=== PATIENT | male | born 1930 | race Hispanic/Latino ===

== ENCOUNTER 2017-04-27 13:24 | Inpatient (IN) | payer MEDICARE, BC ==
[2017-04-27 13:37] VITALS: BMI 19.5
--- NOTE | 2017-04-27 13:58 | ED PDOC ---
Arrival/HPI - General Chief Complaint: Trauma Time Seen by Provider: 04/27/17 13:29 Historian: Patient - History of Present Illness Narrative History of Present Illness (Text): 04/27/17 13:57 An 86 year old male, whose past medical history includes hyperlipidemia, hypertension and Parkinsons, was brought in to the emergency department by EMS complaining of dizziness and lightheadedness. Patient reports he lives home alone and uses a walker. Reports he felt dizzy and lightheaded, as if he was about to faint, but didn't faint. Patient lowered himself to the ground. Denies any trauma. Meals on wheels came by, but patient couldn't get to the door and saw patient and called EMS. Patient reports intermittent diarrhea but denies any chest pain, palpitations, nausea, vomiting or any other complaints at this time. PMD: Dr. Su Symptom Onset: Sudden Symptom Course: Unchanged Activities at Onset: Rest Context: Home Past Medical History - Provider Review Nursing Documentation Reviewed: Yes - Infectious Disease Hx of Infectious Diseases: None - Tetanus Immunization Tetanus Immunization: Unknown - Cardiac Hx Cardiac Disorders: Yes Hx Hypertension: Yes - Pulmonary Hx Respiratory Disorders: Yes (PLEURISY) Hx Pneumonia: Yes - Neurological Hx Neurological Disorder: Yes HX Cerebrovascular Accident: Yes - HEENT Hx HEENT Disorder: Yes (WEARS RX GLASSES) - Renal Hx Renal Disorder: No - Endocrine/Metabolic Hx Endocrine Disorders: No - Hematological/Oncological Hx Blood Disorders: No - Integumentary Hx Dermatological Disorder: No - Musculoskeletal/Rheumatological Hx Musculoskeletal Disorders: Yes Hx Falls: Yes - Gastrointestinal Hx Gastrointestinal Disorders: Yes HX Swallowing Problems: Yes - Genitourinary/Gynecological Hx Genitourinary Disorders: No - Psychiatric Hx Psychophysiologic Disorder: No Hx Substance Use: No - Surgical History Hx Orthopedic Surgery: Yes - Anesthesia Hx Anesthesia: No Hx Anesthesia Reactions: No Hx Malignant Hyperthermia: No - Suicidal Assessment Feels Threatened In Home Enviroment: No Family/Social History - Physician Review Nursing Documentation Reviewed: Yes Family/Social History: No Known Family HX Smoking Status: Former Smoker Hx Alcohol Use: Yes (USED TO DRINK RED WINE DAILY) Hx Substance Use: No Hx Substance Use Treatment: No Allergies/Home Meds Allergies/Adverse Reactions: Allergies No Known Allergies Allergy (Verified 04/27/17 13:44) Home Medications: Home Meds Medication Instructions Recorded Confirmed Tamsulosin Hydrochloride 0.4 mg PO HS 01/13/12 04/27/17 Aspirin [Aspir 81] 81 mg PO DAILY 01/25/12 04/27/17 Clopidogrel [Plavix] 75 mg PO DAILY 04/17/14 04/27/17 Calcitriol [Rocaltrol] 0.5 mcg PO DAILY 07/18/15 04/27/17 Carbidopa/Levodopa [Sinemet Cr 1 ter PO DAILY 07/18/15 04/27/17 25-100 Tablet] Simvastatin [Zocor] 20 mg PO DAILY 07/18/15 04/27/17 Tamsulosin [Flomax] 0.4 mg PO DAILY 07/18/15 04/27/17 traMADol [Ultram] 50 mg PO DAILY 07/18/15 04/27/17 Review of Systems - Physician Review All systems were reviewed & negative as marked: Yes - Review of Systems Constitutional: Other (lightheadedness) Cardiovascular: absent: Chest Pain, Palpitations Gastrointestinal: absent: Nausea, Vomiting Neurological: Dizziness Physical Exam Vital Signs Reviewed: Yes Vital Signs Temp Pulse Resp BP Pulse Ox 04/27/17 14:00 99.1 F 04/27/17 13:40 98.3 F 69 26 H 101/71 100 Temperature: Afebrile Blood Pressure: Normal Pulse: Regular Respiratory Rate: Normal Appearance: Positive for: Well-Appearing, Non-Toxic, Comfortable Pain Distress: None Mental Status: Positive for: Alert and Oriented X 3 - Systems Exam Head: Present: Atraumatic, Normocephalic Pupils: Present: PERRL Extroacular Muscles: Present: EOMI Conjunctiva: Present: Normal Mouth: Present: Moist Mucous Membranes Neck: Present: Normal Range of Motion Respiratory/Chest: Present: Clear to Auscultation, Good Air Exchange. No: Respiratory Distress, Accessory Muscle Use Cardiovascular: Present: Regular Rate and Rhythm, Normal S1, S2. No: Murmurs Abdomen: Present: Normal Bowel Sounds. No: Tenderness, Distention, Peritoneal Signs Back: Present: Normal Inspection Upper Extremity: Present: Normal Inspection. No: Cyanosis, Edema Lower Extremity: Present: Other (left lower extremity 2+ edema; right lower extremity no edema; cellulitis left lower leg) Neurological: Present: GCS=15, CN II-XII Intact, Speech Normal. No: Motor Func Grossly Intact (old left sided weakness) Skin: Present: Warm, Dry, Normal Color. No: Rashes Psychiatric: Present: Alert, Oriented x 3, Normal Insight, Normal Concentration Medical Decision Making ED Course and Treatment: 04/27/17 13:55 Impression: An 86 year old male with dizziness and lightheadedness. Plan: -- EKG -- chest xray -- US lower extremity -- labs -- Urinalysis -- Rocephin -- Reassess and disposition Prior Visits: Notes and results from previous visits were reviewed. Patient was last seen in the emergency department on 03/08/16 for evaluation of dizziness, lightheadedness and weakness. Progress Notes: 04/27/17 14:47 EKG is pacing rate approximately 70. - Lab Interpretations Lab Results: 04/27/17 14:20 04/27/17 14:20 Lab Results 04/27/17 15:15: Urine Color Yellow, Urine Appearance Slight-cloudy, Urine pH 6.0 , Ur Specific [place] 1.020, Urine Protein Trace H, Urine Glucose (UA) Negative , Urine Ketones 15 H, Urine Blood Moderate H, Urine Nitrate Negative, Urine Bilirubin Negative, Urine Urobilinogen 0.2, Ur Leukocyte Esterase Negative, Urine RBC 15 - 20, Urine WBC 2 - 5, Ur Epithelial Cells 3 - 4, Amorphous Sediment Small 04/27/17 14:20: Sodium 137, Chloride 101, Potassium 4.1, Carbon Dioxide 24, Anion Gap 16, BUN 30 H, Creatinine 0.8, Est GFR ( Amer) > 60, Est GFR ( Non-Af Amer) > 60, Random Glucose 99, Calcium 9.0, Total Bilirubin 1.0, AST 55, ALT 56, Alkaline Phosphatase 123, Lactate Dehydrogenase 809 H, Total Creatine Kinase 518 H, CK-MB (CK-2) 11.3 H, CK-MB (CK-2) % 2.2 L, Troponin I 0.02, Total Protein 6.9, Albumin 3.7, Globulin 3.3, Albumin/Globulin Ratio 1.1 04/27/17 14:20: pO2 39, VBG pH 7.39, VBG pCO2 45.0, VBG HCO3 27.2, VBG Total CO2 28.6 H, VBG O2 Sat (Calc) 74.8 H, VBG Base Excess 1.7, VBG Potassium 4.0, Sodium 139.0, Chloride 103.0, Glucose 100, Lactate 3.1 H, FiO2 21.0, Venous Blood Potassium 4.0 04/27/17 14:20: WBC 11.7 H D, RBC 3.93, Hgb 12.7 L, Hct 38.0 L, MCV 96.7, MCH 32.3, MCHC 33.4, RDW 13.0, Plt Count 210, MPV 11.4 H, Gran % 83.6 H, Lymph % ( Auto) 7.4 L, [place] % (Auto) 8.8 H, Eos % (Auto) 0.1 L, Baso % (Auto) 0.1, Gran # 9.78 H, Lymph # 0.9 L, [place] # 1.0 H, Eos # 0.0, Baso # 0.01 04/27/17 14:20: PT 12.5, INR 1.14 H, APTT 27.3 I have reviewed the lab results: Yes - RAD Interpretation Radiology Orders: 04/27/17 13:50 DUPLEX LOWER EXTRM VEIN LEFT [US] Stat 04/27/17 13:51 CHEST ONE VIEW [RAD] Stat Chest 1 view shows no infiltrate effusion or cardiomegaly. Left lower extremity venous Doppler is read by the radiologist as negative for DVT. [employer] Inspector: Radiologist - EKG Interpretation Interpreted by ED Physician: Yes Type: 12 lead EKG - Medication Orders Current Medication Orders: Sodium Chloride (Sodium Chloride 0.9%) 2,500 mls @ 500 mls/hr IV ONCE ONE Stop: 04/27/17 19:44 Discontinued Medications Ceftriaxone Sodium (Rocephin 1 Gram Ivpb (D5w)) 1 gm in 100 mls @ 200 mls/hr IVPB STAT ONE PRN Reason: Protocol Stop: 04/27/17 14:29 Last Admin: 04/27/17 15:25 Dose: 200 mls/hr eMAR Start Stop Document 04/27/17 15:25 CNR (Rec: 04/27/17 15:27 [place]NR [facility] [id number] Intravenous Solution Start Date 04/27/17 Start Time 15:27 Sodium Chloride 1,000 ml/ IV (SUPPLIES) 1,000 mls @ 3,401.94 mls/hr IV ONCE ONE PRN Reason: 60 ML/KG/HR Stop: 04/27/17 15:27 Last Admin: 04/27/17 15:56 Dose: 3,401.94 mls/hr eMAR Start Stop Document 04/27/17 15:56 CNR (Rec: 04/27/17 15:57 CNR [facility] [id number] Intravenous Solution Start Date 04/27/17 Start Time 15:26 - Scribe Statement The provider has reviewed the documentation as recorded by the Toshia Franco Provider Scribe Attestation: All medical record entries made by the Scribe were at my direction and personally dictated by me. I have reviewed the chart and agree that the record accurately reflects my personal performance of the history, physical exam, medical decision making, and the department course for this patient. I have also personally directed, reviewed, and agree with the discharge instructions and disposition. Disposition/Present on Arrival - Present on Arrival Any Indicators Present on Arrival: No History of DVT/PE: No History of Uncontrolled Diabetes: No Urinary Catheter: No History of Decub. Ulcer: No History Surgical Site Infection Following: None - Disposition Have Diagnosis and Disposition been Completed?: Yes Diagnosis: Dehydration, Rhabdomyolysis, Fall, Anemia, Sepsis, Cellulitis, Edema, Weakness , Hematuria Disposition: HOSPITALIZED Disposition Time: 16:16 Patient Plan: Admission, Telemetry Patient Problems: Current Active Problems Problem Status Onset Anemia Acute Cellulitis Acute Dehydration Acute Edema Acute Fall Acute Rhabdomyolysis Acute Sepsis Acute Weakness Acute Condition: SERIOUS Discharge Instructions (ExitCare): Cellulitis (ED), Sepsis (ED), Weakness (ED) Referrals: Elina Myers MD [Primary Care Provider] - Follow up with primary Forms: [employer] (Chinese)
[2017-04-27] MEDS ORDERED: cefTRIAXone 1 gm 1 GM/100 ML BAG IVPB ONE (14:00)
[2017-04-27 14:41] LABS: VENOUS BLOOD GAS BASE EXCESS 1.7 mmol/L (0.0-2.0); VENOUS BLOOD PH 7.39 (7.32-7.43)
[2017-04-27] MEDS ORDERED: Sodium Chloride 0.9% 2,500 ML IV ONE (14:45)
[2017-04-27 14:46] LABS: BASO # 0.01 K/mm3 (0.0-2.0); BASO % 0.1 % (0.0-3.0); EOS % 0.1 % (1.5-5.0); GRAN # 9.78 (1.4-6.5); GRAN % 83.6 % (50.0-68.0); LYMPH # 0.9 (1.2-3.4); LYMPH % 7.4 % (22.0-35.0); MEAN CELL VOLUME 96.7 fl (80.0-105.0); MEAN CORPUSCULAR HEMOGLOBIN 32.3 pg (25.0-35.0); MEAN CORPUSCULAR HGB CONC 33.4 g/dl (31.0-37.0); MEAN PLATELET VOLUME 11.4 fl (7.0-11.0); MONO % 8.8 % (1.0-6.0); WHITE BLOOD COUNT 11.7 10^3/ul (4.5-11.0)
[2017-04-27 14:53] LABS: ALB/GLOB RATIO 1.1 (1.1-1.8); ALKALINE PHOSPHATASE 123 U/L (38-126); ALT/SGPT 56 U/L (7-56); AST/SGOT 55 U/L (17-59); BLOOD UREA NITROGEN 30 mg/dL (7-21); CARBON DIOXIDE 24 mmol/L (21-33); CHLORIDE 101 mmol/L (98-107); GFR AFRICAN-AMERICAN > 60; GLUCOSE,RANDOM 99 mg/dL (70-110); POTASSIUM 4.1 mmol/L (3.6-5.0); SODIUM 137 mmol/L (132-148); TOTAL PROTEIN 6.9 g/dL (5.8-8.3)
[2017-04-27 15:03] LABS: INR 1.14 (0.93-1.08); PARTIAL THROMBOPLASTIN TIME 27.3 Seconds (25.1-36.5); TROPONIN I 0.02 ng/mL
--- NOTE | 2017-04-27 15:29 | RAD ---
PROCEDURE: CHEST RADIOGRAPH, 1 VIEW HISTORY: weakness COMPARISON: None available. FINDINGS: LUNGS: Clear. PLEURA: No pneumothorax or pleural fluid seen. CARDIOVASCULAR: Normal. OSSEOUS STRUCTURES: No significant abnormalities. VISUALIZED UPPER ABDOMEN: Normal. OTHER FINDINGS: Single lead pacemaker IMPRESSION: No active disease.
[2017-04-27 16:05] LABS: URINE BILIRUBIN NEGATIVE (NEGATIVE); URINE BLOOD MODERATE (NEGATIVE); URINE GLUCOSE (UA) NEGATIVE (NEGATIVE); URINE KETONE 15 mg/dL (NEGATIVE); URINE LEUKOCYTE ESTERASE NEGATIVE Leu/uL (NEGATIVE); URINE PROTEIN TRACE mg/dL (<30 mg/dL); URINE UROBILINOGEN 0.2 E.U./dL (<1 E.U./dL)
[2017-04-27 16:07] LABS: URINE APPEARANCE SLIGHT-CLOUDY (CLEAR); URINE COLOR YELLOW (YELLOW)
[2017-04-27 16:14] LABS: URINE AMORPHOUS SEDIMENT SMALL; URINE RBC 15 - 20 /hpf (0-2)
[2017-04-27 18:32] LABS: VENOUS BLOOD GAS BASE EXCESS 2.9 mmol/L (0.0-2.0); VENOUS BLOOD PH 7.42 (7.32-7.43)
--- NOTE | 2017-04-27 18:50 | US ---
PROCEDURE: Left lower extremity venous US HISTORY: Leg pain and swelling. Evaluate for DVT. PHYSICIAN(S): Dean Honeycutt MD. TECHNIQUE: Duplex sonography and color-flow Doppler with graded compression were used to evaluate the deep venous system of the left lower extremity. FINDINGS: The visualized deep venous system of the left lower extremity is sonographically normal and compressible. Normal wave forms and augmentation are seen. There is no sonographic evidence for deep venous thrombosis in the visualized segments of the left lower extremity. IMPRESSION: 1. No sonographic evidence for deep venous thrombosis in the visualized segments of the left lower extremity.
[2017-04-27] MEDS ORDERED: Vancomycin 1gm in NS 250ml 1 GM/250 ML BAG IVPB STA (19:31)
--- NOTE | 2017-04-27 23:51 | CARD ---
APPROVED REPORT EKG Measurement Heart [id number] UT 102P21 [id number] <Conclusion> Demand pacemaker, interpretation is based on intrinsic rhythm Sinus rhythm Prolonged QT Abnormal ECG
--- NOTE | 2017-04-28 06:36 | HP ---
The patient is in [facility] in [place]. HISTORY OF PRESENT ILLNESS: The patient is seen in the emergency room. He is an 86-year-old white male. The patient was brought in by the EMS, because there was emergency call and the patient was found on the floor of his own apartment while at home. The patient was conscious and was able to answer questions, but he said he was very weak and dizzy, he fell down and the EMS brought him into the ER. He did not have any emergency cardiac pulmonary situation, but presented with severe infection of both legs including the skin cellulitis of both multiple abrasions. HISTORY OF PRESENT ILLNESS: The patient has past history of falls in the past and the patient has significant past history. He had been treated for hypertension, cerebrovascular disease, stroke, Parkinson's disease. The patient atherosclerotic heart disease with sick sinus syndrome. The patient has a pacemaker placed. The patient also had history of benign prostatic hyperplasia with incontinence of urine. The patient has evidence of gastritis reflux and the patient also has symptoms of hypertension associated with high blood pressure. The patient is intelligent and able to answer all questions. PHYSICAL EXAMINATION: GENERAL: The patient is lying in the emergency room. The patient is evaluated and seen and examined. HEENT: The patient's head is normocephalic. The head does not show any evidence of any injuries. NECK: The thyroid is not enlarged. The JVP is flat. Carotid pulses are present bilaterally. LUNGS: Trachea is central. Breath sounds are vesicular. No adventitious sounds. HEART: Normal sinus rhythm, S1 and S2 present. The patient has cardiac pacemaker, which is on demand. ABDOMEN: Soft. Liver and spleen not palpable. There is some distention. The patient has incontinence of urine. He does not have had [place] catheter in the recent past. CENTRAL NERVOUS SYSTEM: He has weakness previous stroke and the patient has had a hemorrhage in the basal ganglia also in the past. 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 The patient's hygiene is reasonable and he does have evidence of incontinence renal issue. MEDICATIONS: His list of medications consist of aspirin. The patient is on Plavix 75 mg daily, Lipitor 10 mg daily, Flomax 0.4 mg daily, vitamin D 0.25 mcg daily, Sinemet 25/100 one three times a day. The patient is on metoprolol 25 mg once daily, 2 g of sodium, heart-healthy diet. LABORATORY DATA: Done in the hospital emergency room, the white count is 7,700, his hemoglobin is 12.7, differential shows a shift to the left with a 83.6% of neutrophils and the patient also has normal eosinophil count. His chemistry, the patient's sodium is 137, potassium is 4.1, BUN 30, creatinine 0.8. The patient's LDH is 809, creatine kinase is 518. CPK MB fraction 11.3 consistent with some mild damage most likely related to skeletal muscle. The patient's troponin is within normal limits. The patient has x-rays done in the hospital, the chest x-ray was clear. The patient had a electrocardiogram, which shows evidence of ischemic heart disease. Ultrasound of the legs did not reveal any deep vein thrombosis. the patient's medication at this time; the patient will be placed on antibiotic. We will provide local treatment for both legs and we provide the patient with all other medical treatments he requires. His overall prognosis is guarded. Condition is clinically stable at this time, even though it is acute. We will continue with management plan and we will follow up with care for the patient, probably needs long-term subacute care for continued antibiotic treatment after the patient is stable. We will discuss that with the patient and make arrangements. Cong Myers MD
[2017-04-28 06:37] LABS: IRON 55 ug/dL (45-180)
[2017-04-28 06:48] LABS: BASO # 0.03 K/mm3 (0.0-2.0); BASO % 0.3 % (0.0-3.0); BLOOD UREA NITROGEN 29 mg/dL (7-21); CALCIUM 8.2 mg/dL (8.4-10.5); CARBON DIOXIDE 26 mmol/L (21-33); CHLORIDE 111 mmol/L (98-107); EOS # 0.1 (0.0-0.7); GFR AFRICAN-AMERICAN > 60; GLUCOSE,RANDOM 100 mg/dL (70-110); GRAN # 6.4 (1.4-6.5); GRAN % 71.9 % (50.0-68.0); HEMATOCRIT 32.9 % (42.0-52.0); LYMPH % 11.6 % (22.0-35.0); MEAN CELL VOLUME 96.5 fl (80.0-105.0); MEAN CORPUSCULAR HEMOGLOBIN 31.4 pg (25.0-35.0); MEAN CORPUSCULAR HGB CONC 32.5 g/dl (31.0-37.0); MEAN PLATELET VOLUME 11.2 fl (7.0-11.0); MONO # 1.4 (0.1-0.6); MONO % 15.2 % (1.0-6.0); POTASSIUM 3.4 mmol/L (3.6-5.0); RED CELL DISTRIBUTION WIDTH 13.2 % (11.5-14.5); SODIUM 142 mmol/L (132-148); WHITE BLOOD COUNT 8.9 10^3/ul (4.5-11.0)
[2017-04-28] MEDS ORDERED: Potassium Chloride 20 mEq ER Tab PO ONE (08:12)
[2017-04-28] MEDS: Metoprolol Succinate 25 mg XL Tab PO SCH (09:03)
[2017-04-28] MEDS: Vancomycin 1gm in NS 250ml 1 GM/250 ML BAG IVPB SCH ×2 (09:19→18:22)
--- NOTE | 2017-04-28 10:17 | PN ---
DATE: LOCATION: The patient is in [facility] in [place], room 374, bed 2. SUBJECTIVE: The patient was admitted yesterday with a history of syncopal episode and weakness. The patient had bilateral cellulitis on both legs extending from the foot and above the area. The patient has significant past history in that he has had history of hypertension and stroke. The patient has had cerebral hemorrhage in the past. The patient has had sinus syndrome. He has a cardiac pacemaker. The patient has a history of benign prostate hyperplasia and he has poor gait, but he is able to walk. 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 PHYSICAL EXAMINATION: VITAL SIGNS: Pulse is 74, blood pressure is /62, respirations of 20, O2 saturation is 95% on room air, and the patient's temperature is 99.6. HEENT: Head is normocephalic. Eyes within normal limits. NECK: Thyroid is not enlarged. JVP is flat. LUNGS: Clinically clear. HEART: Sinus rhythm. Pacemaker present. The patient's QT interval was prolonged. We will repeat the EKG. ABDOMEN: Soft and distended. Liver and spleen not palpable. CENTRAL NERVOUS SYSTEM: The patient has evidence of weakness involving the right leg, which is residual from his previous stroke, but the patient does have cerebral vascular insufficiency. The patient's infection in his leg is being covered by Rocephin at this time, Infectious Disease investment consultant will be notified and then he will see the patient also and advice. LABORATORY DATA: Blood workup: White count today was 8900, hemoglobin had dropped from 12.7 to 10.7, there is no reason for the hemoglobin to drop unless the patient's titration caused it. The patient's chemistry: Total iron is 55. The patient's GFR is within normal limits . We will continue the patient on his medication as the patient is on aspirin 81 mg daily, Plavix 75 daily. The patient is on Lipitor 10 daily, calcitriol 0.25 mcg daily, Rocephin 1 g q.24 hours, the patient's Sinemet 25/100 3 times a day, metoprolol 25 mg daily, Ultram for pain, and vancomycin 1 g q.12 hours. Cong Myers MD [facility] # [id number]
[2017-04-28] MEDS: cefTRIAXone 1 gm 1 GM/100 ML BAG IVPB SCH (11:10)
[2017-04-28] MEDS: Carbidopa/Levodopa 25/100 CR PO SCH ×3 (11:11→18:23)
--- NOTE | 2017-04-28 17:30 | CARD ---
APPROVED REPORT EKG Measurement Heart [id number] CT 142P54 [id number] <Conclusion> Demand pacemaker, interpretation is based on intrinsic rhythm Sinus rhythm with occasional APCs and PVCs Otherwise normal ECG
[2017-04-28 20:28] LABS: URINE BILIRUBIN NEGATIVE (NEGATIVE); URINE BLOOD MODERATE (NEGATIVE); URINE GLUCOSE (UA) NEGATIVE (NEGATIVE); URINE KETONE NEGATIVE (NEGATIVE); URINE LEUKOCYTE ESTERASE SMALL Leu/uL (NEGATIVE); URINE PROTEIN NEGATIVE mg/dL (<30 mg/dL); URINE UROBILINOGEN 0.2 E.U./dL (<1 E.U./dL)
[2017-04-28 20:36] LABS: URINE APPEARANCE SLIGHT-CLOUDY (CLEAR); URINE COLOR YELLOW (YELLOW)
[2017-04-28 20:50] LABS: URINE BACTERIA FEW (NEG)
--- NOTE | 2017-04-28 23:57 | CON ---
DATE: 04/28/2017 LOCATION: The patient was seen early this morning in room 374, bed 2. CHIEF COMPLAINT: Weakness times several days. HISTORY OF PRESENT ILLNESS: This is an 86-year-old male with past medical history of hyperlipidemia, hypertension and Parkinson's who was admitted because of dizziness and weakness and Infectious Diseases consultation because of the left leg erythema. There is no chest pain at this time and no nausea or vomiting. No dysuria or frequency. PAST MEDICAL HISTORY: Past medical history is significant for cerebrovascular accident with left-sided weakness, BPH, arthritis, hyperlipidemia, hypertension and Parkinson's. PAST SURGICAL HISTORY: Past surgical history is significant for orthopedic surgery. ALLERGIES:. THE PATIENT HAS NO KNOWN ALLERGIES. MEDICATIONS: His medications at home reveals to be carbidopa and levodopa, aspirin, tamsulosin, Zocor, metoprolol, Plavix, and tramadol. PHYSICAL EXAMINATION: GENERAL: The patient is in bed in no acute distress, however, chronically ill and weak. VITAL SIGNS: With temperature of 99.6, heart rate of 91 yesterday and it is down to 62 today with respiratory rate of 20, it was 26 in the Emergency Room, and blood pressure is 135/57. HEENT: Examination of HEENT is unremarkable. NECK: Supple. LUNGS: Have decreased breath sounds. HEART: Normal S1 and S2. GASTROINTESTINAL: Abdominal examination is soft and nontender. EXTREMITIES: Examination of the leg reveals the patient's left leg is erythematous and edema. No discharge and no break in the skin. LABORATORY DATA: Laboratory examination reveals a white count of 11,700 and platelets of 210. Coagulation is noted and chemistries reveals a BUN of 30 and creatinine of 0.8. LDH is 809. Urinalysis is 2 to 5 wbc's, moderate blood. DIAGNOSTIC DATA: The patient had a chest x-ray which shows a clear and the patient also had an ultrasound, no evidence of DVT. ASSESSMENT AND PLAN: This is an 86-year-old male with hyperlipidemia, hypertension and Parkinson's with cerebrovascular accident, left-sided and weakness, benign prostatic hypertrophy and arthritis, admitted with tachycardia, dyspnea, mild leukocytosis, erythematous left leg with number one is sepsis with left leg cellulitis. Treat the patient with vancomycin and ceftriaxone. Pending clinical response and brooks cultures and will follow closely with you. Jm Aragon MD
[2017-04-29 07:50] LABS: SODIUM 140 mmol/L (132-148)
[2017-04-29 07:52] LABS: BLOOD UREA NITROGEN 27 mg/dL (7-21); CALCIUM 8.2 mg/dL (8.4-10.5); CARBON DIOXIDE 27 mmol/L (21-33); CHLORIDE 109 mmol/L (98-107); GFR AFRICAN-AMERICAN > 60; GLUCOSE,RANDOM 92 mg/dL (70-110); POTASSIUM 3.9 mmol/L (3.6-5.0)
--- NOTE | 2017-04-29 08:55 | PN ---
SUBJECTIVE: This patient is in room 571, bed 1, [facility] in [place]. He was admitted with cellulitis of both leg. Patient has excoriation of the scrotum which is to be noted. Patient has had pain, discomfort, history of syncope, fall in his house. The patient's past history is significant; he has history of cerebrovascular disease, Parkinson disease, cerebral hemorrhage, stroke. Patient has had history of atherosclerotic heart disease, cardiac pacemaker, sick sinus syndrome. Patient has benign prostatic hyperplasia. Patient also has history of falls. PHYSICAL EXAMINATION VITAL SIGNS: This morning, pulse is 67, blood pressure is 107/59, respirations are 16, O2 sat is 97% on room air. GENERAL: Lying down in bed. He is trying to be up in the chair. Physical therapy is going to evaluate him/ HEENT: Head is normocephalic. No injury. NECK: Thyroid is not enlarge. JVP is flat. LUNGS: Clear. HEART: Normal sinus rhythm,pacemaker rhythm. ABDOMEN: Soft, distended, nonfocal signs. SPRINKLER INSTALLER EXAMINATION: He has evidence of weakness of right leg from previous stroke. Continue current management. He is on antibiotic treatment for extensive cellulitis of both legs. Patient's overall prognosis is guarded. Condition is improving. We will follow up. He needs physical therapy rehabilitation and continue evaluation for the procedures. Cong Myers MD
[2017-04-29] MEDS: Vancomycin 1gm in NS 250ml 1 GM/250 ML BAG IVPB SCH ×2 (09:00→22:05)
[2017-04-29] MEDS: Metoprolol Succinate 25 mg XL Tab PO SCH (09:00)
[2017-04-29] MEDS: Carbidopa/Levodopa 25/100 CR PO SCH ×3 (10:18→18:16)
[2017-04-29] MEDS: cefTRIAXone 1 gm 1 GM/100 ML BAG IVPB SCH (11:27)
[2017-04-29] MEDS: Nystatin 100,000 Units/gm Topical Pow(15 gm) TOP SCH (18:17)
--- NOTE | 2017-04-29 22:23 | PN ---
DATE: 04/29/2017 SUBJECTIVE: The patient is in bed, in no acute distress. PHYSICAL EXAMINATION VITAL SIGNS: Temperature is 98, blood pressure is 102/60, respiratory rate of 18, heart rate of 67. HEENT: Unremarkable. NECK: Supple. LUNGS: Have decreased breath sounds. HEART: Normal S1, S2. ABDOMEN: Soft and nontender. LABORATORY DATA: Reveals a white count of 8.9, hemoglobin of 10, platelets of 172. Chemistry reveals a BUN of 27, creatinine of 0.9. Microbiology reveals the patient's urine culture had lactobacillus. Blood cultures are no growth at 48 hours and the patient is currently on vancomycin. Dr. Myers's note is reviewed. ASSESSMENT AND PLAN: This is an 86-year-old male with hyperlipidemia, hypertension, Parkinson disease, cerebrovascular accident, left-sided weakness, benign prostatic hypertrophy, and arthritis, admitted with tachycardia, dyspnea, mild leukocytosis, erythema of the left leg, and sepsis to the left leg, cellulitis which is improved and the patient is on vancomycin and ceftriaxone. We will follow the patient clinically. The patient's urine culture has lactobacillus so for the urinalysis and only 2 to 5 wbc. We will follow with you. Jm Aragon MD
--- NOTE | 2017-04-30 07:59 | CP.PCM.PN ---
Subjective - Date & Time of Evaluation Date of Evaluation: 04/30/17 Time of Evaluation: 07:40 - Subjective Subjective: Patient seen this morning in room 571 bed 1. He says he feels weak and lightheaded. Objective - Vital Signs/Intake and Output Vital Signs (last 24 hours): Temp Pulse Resp BP Pulse Ox 97.9 F 61 18 102/66 95 04/29/17 08:00 04/29/17 09:00 04/29/17 08:00 04/29/17 09:00 04/29/17 08:00 Intake and Output: 04/30/17 04/30/17 06:59 18:59 Intake Total 440 Balance 440 - Medications Medications: Current Medications Aspirin (Ecotrin) 81 mg PO DAILY [facility] Last Admin: 04/29/17 10:18 Dose: 81 mg Atorvastatin Calcium (Lipitor) 10 mg PO DIN [facility] Last Admin: 04/29/17 18:16 Dose: 10 mg Calcitriol (Rocaltrol) 0.25 mcg PO DAILY [facility] Last Admin: 04/29/17 10:18 Dose: 0.25 mcg Carbidopa/Levodopa (Sinemet Cr) 1 tab PO TID [facility] Last Admin: 04/29/17 18:16 Dose: 1 tab Clopidogrel Bisulfate (Plavix) 75 mg PO DAILY [facility] Last Admin: 04/29/17 10:18 Dose: 75 mg Ceftriaxone Sodium (Rocephin 1 Gram Ivpb (D5w)) 1 gm in 100 mls @ 100 mls/hr IVPB DAILY [facility] PRN Reason: Protocol Last Admin: 04/29/17 11:27 Dose: 100 mls/hr Vancomycin HCl (Vancomycin 1gm) 1 gm in 250 mls @ 167 mls/hr IVPB 0800,2000 [facility] PRN Reason: Protocol Last Admin: 04/29/17 22:05 Dose: 167 mls/hr Metoprolol Succinate (Toprol Xl) 25 mg PO BRK [facility] Last Admin: 04/29/17 09:00 Dose: Not Given Nystatin (Nystop Topical Powder) 0 gm TOP BID [facility] Last Admin: 04/29/17 18:17 Dose: 1 applic Tamsulosin HCl (Flomax) 0.4 mg PO DAILY [facility] Last Admin: 04/29/17 10:18 Dose: 0.4 mg Tramadol HCl (Ultram) 50 mg PO BID PRN PRN Reason: Pain, moderate (4-7) Last Admin: 04/30/17 02:14 Dose: 50 mg - Labs Labs: 04/28/17 05:30 04/29/17 07:10 PT 12.5 SECONDS (9.4-12.5) 04/27/17 14:20 INR 1.14 (0.93-1.08) H 04/27/17 14:20 APTT 27.3 Seconds (25.1-36.5) 04/27/17 14:20 - Constitutional Appears: No Acute Distress - Head Exam Head Exam: ATRAUMATIC, NORMOCEPHALIC - Respiratory Exam Respiratory Exam: Clear to Ausculation Bilateral, NORMAL BREATHING PATTERN - Cardiovascular Exam Cardiovascular Exam: +S1, +S2 - GI/Abdominal Exam GI & Abdominal Exam: Soft, Normal Bowel Sounds. absent: Tenderness - Neurological Exam Neurological Exam: Alert, Awake, Oriented x3 Assessment and Plan - Assessment and Plan (Free Text) Assessment: Cellulitis bilateral lower extremities UTI Hematuria on Urinalysis s/p pacemaker Parkinson's disease generalized weakness Plan: Patient is feeling better although he has periods of lightheadedness. He feels weak. awaiting physical therapy evaluation. continue IV Vancomycin and Rocephin as per infectious disease. Repeat urinalysis also shows moderate blood. Will consult urology.
[2017-04-30] MEDS: Vancomycin 1gm in NS 250ml 1 GM/250 ML BAG IVPB SCH (09:04)
[2017-04-30] MEDS: Metoprolol Succinate 25 mg XL Tab PO SCH (09:05)
[2017-04-30] MEDS: cefTRIAXone 1 gm 1 GM/100 ML BAG IVPB SCH (09:05)
[2017-04-30] MEDS: Carbidopa/Levodopa 25/100 CR PO SCH ×3 (09:08→18:25)
[2017-04-30] MEDS: Nystatin 100,000 Units/gm Topical Pow(15 gm) TOP SCH (10:00)
[2017-04-30 10:32] LABS: BASO # 0.02 K/mm3 (0.0-2.0); BASO % 0.3 % (0.0-3.0); EOS # 0.3 (0.0-0.7); EOS % 3.1 % (1.5-5.0); GRAN # 5.85 (1.4-6.5); GRAN % 73.4 % (50.0-68.0); HEMATOCRIT 34.4 % (42.0-52.0); LYMPH # 0.8 (1.2-3.4); LYMPH % 10.6 % (22.0-35.0); MEAN CELL VOLUME 96.4 fl (80.0-105.0); MEAN CORPUSCULAR HEMOGLOBIN 31.4 pg (25.0-35.0); MEAN CORPUSCULAR HGB CONC 32.6 g/dl (31.0-37.0); MEAN PLATELET VOLUME 11.1 fl (7.0-11.0); MONO % 12.6 % (1.0-6.0); RED CELL DISTRIBUTION WIDTH 12.6 % (11.5-14.5)
[2017-04-30 10:47] LABS: ALKALINE PHOSPHATASE 89 U/L (38-126); ALT/SGPT 30 U/L (7-56); AST/SGOT 33 U/L (17-59); BILIRUBIN,TOTAL 0.4 mg/dL (0.2-1.3); BLOOD UREA NITROGEN 23 mg/dL (7-21); CALCIUM 7.9 mg/dL (8.4-10.5); CARBON DIOXIDE 27 mmol/L (21-33); CHLORIDE 103 mmol/L (98-107); GFR AFRICAN-AMERICAN > 60; GLUCOSE,RANDOM 121 mg/dL (70-110); PHOSPHOROUS 3.2 mg/dL (2.5-4.5); POTASSIUM 4.1 mmol/L (3.6-5.0); SODIUM 136 mmol/L (132-148); TOTAL PROTEIN 5.8 g/dL (5.8-8.3)
[2017-04-30 19:22] VITALS: O2SAT 97
--- NOTE | 2017-04-30 21:11 | PN ---
DATE: 04/30/2017 SUBJECTIVE: The patient is seen in bed, in no acute distress. PHYSICAL EXAMINATION: VITAL SIGNS: Temperature of 98, blood pressure is 150/70, respiratory rate of 20, and heart rate of 70. HEENT: Unremarkable. NECK: Supple. LUNGS: Have decreased breath sounds. HEART: Normal S1 and S2. ABDOMEN: Soft and nontender. LABORATORY DATA: Reveals a white count of 8.0, hemoglobin of 11, and platelets of 178. Chemistry reveals a BUN of 23 and creatinine of 0.9. Urinalysis is noted and stool for occult blood is negative. Blood cultures are no growth. Urine culture had Lactobacillus. Review of orders reveals the patient to be on ceftriaxone and vancomycin. Examination of the patient's leg is much improved and almost resolved. ASSESSMENT AND PLAN: This is an 86-year-old male with hyperlipidemia, hypertension, Parkinson's disease, cerebrovascular accident, left-sided weakness, benign prostatic hypertrophy, and arthritis admitted with tachycardia, dyspnea, leukocytosis, and sepsis with left leg cellulitis, which is much improved. Currently, we will discontinue the vancomycin. Dr. Myers's note is reviewed. most likely if he continues to improve, we will change the ceftriaxone after tomorrow morning's dose to p.o. antibiotic to complete therapy. We will order doxycycline 100 mg p.o. b.i.d. five days. Jm Aragon MD
[2017-05-01 07:09] LABS: BASO # 0.03 K/mm3 (0.0-2.0); BASO % 0.3 % (0.0-3.0); EOS # 0.3 (0.0-0.7); EOS % 3.7 % (1.5-5.0); GRAN # 6.24 (1.4-6.5); GRAN % 72.7 % (50.0-68.0); HEMATOCRIT 34.8 % (42.0-52.0); LYMPH % 11.2 % (22.0-35.0); MEAN CELL VOLUME 95.3 fl (80.0-105.0); MEAN CORPUSCULAR HEMOGLOBIN 31.2 pg (25.0-35.0); MEAN CORPUSCULAR HGB CONC 32.8 g/dl (31.0-37.0); MEAN PLATELET VOLUME 11.4 fl (7.0-11.0); MONO % 12.1 % (1.0-6.0); RED CELL DISTRIBUTION WIDTH 12.6 % (11.5-14.5); WHITE BLOOD COUNT 8.6 10^3/ul (4.5-11.0)
[2017-05-01 07:36] LABS: BLOOD UREA NITROGEN 25 mg/dL (7-21); CALCIUM 8.2 mg/dL (8.4-10.5); CARBON DIOXIDE 27 mmol/L (21-33); CHLORIDE 105 mmol/L (98-107); GFR AFRICAN-AMERICAN > 60; GLUCOSE,RANDOM 92 mg/dL (70-110); POTASSIUM 4.1 mmol/L (3.6-5.0); SODIUM 136 mmol/L (132-148)
[2017-05-01 09:20] VITALS: BP 147/86; PULSE 66; RESP 18; TEMP 99
--- NOTE | 2017-05-01 09:53 | PN ---
DATE: SUBJECTIVE: This patient is seen in [facility], room 571, bed 1. The patient was admitted with history of cellulitis of both legs associated with history of fall and syncope. The patient has past history of hypertension. The patient has history of cerebrovascular disease. The patient has history of coronary artery disease, cardiac pacemaker. The patient was treated because he had Parkinson's secondary to cerebrovascular disease. The patient is treated with antibiotics and the patient is getting all his medications. The patient is on doxycycline 100 mg q.12 hours. The patient is on aspirin 81 mg daily, Flomax 0.4 mg daily, and Lipitor 10 mg daily. The patient is on nystatin cream for the scrotal rash, Plavix 75 mg daily, and calcitriol 0.25 mcg daily. The patient is on 1 g Rocephin q.24 hours, Sinemet 25/100 one three times a day, and 50 mg of tramadol p.r.n. b.i.d. for pain. PHYSICAL EXAMINATION: VITAL SIGNS: Pulse is 65, blood pressure is 115/56, respirations are 20, temperature is 98.4, and the patient's O2 sat is 97% on room air. GENERAL: The patient is sitting up in the chair. LUNGS: Clear. HEART: Normal sinus rhythm,pacemaker is present. CENTRAL NERVOUS SYSTEM: Clinically shows evidence of previous weakness on the right side from stroke. The patient has syncopal feeling and physical therapy is being provided to the patient at this time and probably needs long-term subacute care. We will consider the patient being placed in senior living facility for subacute care. Currently, the patient is acutely treated for cellulitis. Cong Myers MD
[2017-05-01] MEDS ORDERED: Nystatin 100,000 Units/gm Cream(15 gm) TOP SCH (10:00)
[2017-05-01] MEDS: Carbidopa/Levodopa 25/100 CR PO SCH (14:15)
--- NOTE | 2017-05-01 19:31 | PN ---
DATE: 05/01/2017 SUBJECTIVE: The patient is in bed, in no acute distress, nontoxic. PHYSICAL EXAMINATION: VITAL SIGNS: Temperature is 99, blood pressure is 140/80, respiratory rate of 18, heart rate of 60. HEENT: Unremarkable. NECK: Supple. LUNGS: Decreased breath sounds. HEART: Normal S1 and S2. ABDOMEN: Soft and nontender. No organomegaly. No rebound. LABORATORY EXAMINATION: Reveals a white count of 8.6, hemoglobin of 11, and platelets of 196. Chemistries are noted and microbiology reveals that blood cultures are negative, and urine culture has lactobacillus. Review of orders reveal the patient to be on p.o. doxycycline. ASSESSMENT AND PLAN: This is an 86-year-old male with hyperlipidemia, hypertension, Parkinson's disease, cerebrovascular accident, left-sided weakness, benign prostatic hypertrophy, arthritis, admitted with tachycardia, dyspnea, leukocytosis and sepsis with a left leg cellulitis and on p.o. doxycycline to complete five days. The patient's leg has much improved. Jm Aragon MD
--- NOTE | 2017-05-01 22:50 | CON ---
CONSULTATION DATE: 05/01/2017 LOCATION: The patient is seen in [facility]. CHIEF COMPLAINT: Cellulitis. HISTORY OF PRESENT ILLNESS: This is an 86-year-old male, who is brought in after he was found on the floor at home. The patient was able to answer questions, but was weak and dizzy. He did not have any cardiac resuscitation, but was noted to have a severe cellulitis of both legs and multiple abrasions. Urologically, question of a urinary infection. The patient had been treated with antibiotics for the cellulitis. He reports he is voiding with mild frequency, but voiding good amounts. He denies any current dysuria, urgency, or gross hematuria. He is having some incontinence issues. PAST MEDICAL HISTORY: History of falls, hypertension, CVA, Parkinson's disease, atherosclerotic heart disease, permanent pacemaker placement, BPH with incontinence, gastritis. FAMILY HISTORY: Noncontributory to this episode. SOCIAL HISTORY: Denies smoking or EtOH use. MEDICATIONS: Include Doryx, aspirin, Flomax, Lipitor, nystatin, Plavix, Rocaltrol, Sinemet, and Ultram. He did receive Rocephin and vancomycin. ALLERGIES: NO KNOWN DRUG ALLERGIES. REVIEW OF SYSTEMS: A 12-point review of systems was obtained. Positive for weakness. Positive for difficulty ambulating. Positive for urinary incontinence and urinary frequency. Positive for cellulitis and skin erythema. Positive for tremor. Other systems are negative. PHYSICAL EXAMINATION VITAL SIGNS: Afebrile, temperature is 99, pulse is 66, BP 147/86, and respirations 18. GENERAL: He is awake, alert, in no acute distress. NECK: Supple. There is no adenopathy. CHEST: Reveals a normal inspiratory effort. CARDIAC: Positive S1 and S2. There is some mild peripheral edema. cellulitis have improved and almost resolved. ABDOMEN: Soft, nontender, nondistended. There is no CVA tenderness. The bladder does not appear distended, but it is difficult to palpate. : Phallus is normal. Scrotum is normal. Testes bilaterally descended, nontender, no masses. Epididymis are normal. The patient is wearing a Depends, it is saturated with urine at this time. EXTREMITIES: No cyanosis. Resolving cellulitis and trace edema. LABORATORY DATA: WBC count 8.6, GFR greater than 60. Urinalysis from 04/28/2017 showed 5 to 10 rbc, 2 to 5 wbc, negative nitrites. Urine culture grew lactobacillus species from 04/27/2017 between 50,000 to 100,000. IMAGING EXAM: No pertinent urologic x-rays have been done. IMPRESSION AND PLAN: This 86-year-old male admitted after a fall at home with cellulitis. Condition appears to be improved, although the patient does still have difficulty ambulating and some weakness. Urologically, the patient has history of benign prostatic hypertrophy and urinary incontinence which appears to be continued at this time. As for the lactobacillus, the patient has received antibiotic coverage for his cellulitis which should have treated and the infection, this is likely a contaminant anyway. The patient did not have a symptomatic urinary infection. Plan will be for the patient to continue rehabilitation. He is going to be transferred to a subacute facility. No acute urologic intervention at this time. The patient should followup in our office after rehabilitation to reassess his voiding and recheck his urine. Darnell Gant MD
== END 2017-05-01 18:28 | DRG 872 ==
LOC: ED 13:24 → ERH 16:39 → 3RSO 20:14 → 5RSO 04-28 22:46
PROVIDERS: ADMIT Internal Medicine; ATTEND Internal Medicine
DX: A41.9 Sepsis, unspecified organism (principal); L03.116 Cellulitis of left lower limb; G20 Parkinson's disease; I69.354 Hemiplegia and hemiparesis following cerebral infarction affecting left non-dominant side; L03.115 Cellulitis of right lower limb; N39.0 Urinary tract infection, site not specified; E86.0 Dehydration; I10 Essential (primary) hypertension; I25.10 Atherosclerotic heart disease of native coronary artery without angina pectoris; N40.1 Benign prostatic hyperplasia with lower urinary tract symptoms; R32 Unspecified urinary incontinence; S80.812A Abrasion, left lower leg, initial encounter; S80.811A Abrasion, right lower leg, initial encounter; E78.5 Hyperlipidemia, unspecified; K29.70 Gastritis, unspecified, without bleeding; K21.9 Gastro-esophageal reflux disease without esophagitis; M19.90 Unspecified osteoarthritis, unspecified site; W19.XXXA Unspecified fall, initial encounter; Y92.009 Unspecified place in unspecified non-institutional (private) residence as the place of occurrence of the external cause; Z79.82 Long term (current) use of aspirin; Z91.81 History of falling; Z95.0 Presence of cardiac pacemaker; Z79.02 Long term (current) use of antithrombotics/antiplatelets

== ENCOUNTER 2017-06-05 15:50 | Inpatient (IN) | payer MEDICARE, BC ==
[2017-06-05 16:13] VITALS: BMI 21.1
[2017-06-05 17:07] LABS: BASO # 0.02 K/mm3 (0.0-2.0); BASO % 0.2 % (0.0-3.0); GRAN # 10.82 (1.4-6.5); GRAN % 83.6 % (50.0-68.0); HEMOGLOBIN 14.2 g/dL (14.0-18.0); LYMPH # 0.9 (1.2-3.4); LYMPH % 6.7 % (22.0-35.0); MEAN CORPUSCULAR HEMOGLOBIN 31.8 pg (25.0-35.0); MEAN CORPUSCULAR HGB CONC 33.1 g/dl (31.0-37.0); MEAN PLATELET VOLUME 12.2 fl (7.0-11.0); MONO # 1.2 (0.1-0.6); MONO % 9.5 % (1.0-6.0); RBC 4.47 10^6/uL (3.5-6.1); RED CELL DISTRIBUTION WIDTH 12.9 % (11.5-14.5); WHITE BLOOD COUNT 12.9 10^3/ul (4.5-11.0)
[2017-06-05 17:17] LABS: ALT/SGPT 26 U/L (7-56); AST/SGOT 28 U/L (17-59); BLOOD UREA NITROGEN 47 mg/dL (7-21); CALCIUM 9.3 mg/dL (8.4-10.5); GFR AFRICAN-AMERICAN > 60; GFR NON-AFRICAN AMERICAN > 60
--- NOTE | 2017-06-05 17:28 | ED PDOC ---
Arrival/HPI - General Chief Complaint: Weakness/Neurological Deficit Time Seen by Provider: 06/05/17 16:19 Historian: Patient - History of Present Illness Narrative History of Present Illness (Text): 06/05/17 16:17 A 86 year old male, whose past medical history includes advance Parkinson's, presents to the emergency department complaining of chronic weakness. Patient reports having difficulty getting up from chair today. Patient notes also experiencing cough and fever, but denies any pain or any other symptoms at this time. PMD: Dr. Elina Myers Past Medical History - Provider Review Nursing Documentation Reviewed: Yes - Infectious Disease Hx of Infectious Diseases: None - Tetanus Immunization Tetanus Immunization: Unknown - Cardiac Hx Cardiac Disorders: Yes Hx Hypertension: Yes Hx Pacemaker: Yes - Pulmonary Hx Pneumonia: Yes - Neurological HX Cerebrovascular Accident: Yes Hx Parkinson's Disease: Yes - HEENT Hx HEENT Disorder: Yes (WEARS RX GLASSES) - Renal Hx Renal Disorder: No - Endocrine/Metabolic Hx Endocrine Disorders: No - Hematological/Oncological Hx Blood Disorders: No - Integumentary Hx Dermatological Disorder: No - Musculoskeletal/Rheumatological Hx Falls: Yes - Gastrointestinal Hx Gastrointestinal Disorders: Yes HX Swallowing Problems: Yes - Genitourinary/Gynecological Hx Genitourinary Disorders: No - Psychiatric Hx Psychophysiologic Disorder: No Hx Substance Use: No - Surgical History Hx Orthopedic Surgery: Yes - Anesthesia Hx Anesthesia: No Hx Anesthesia Reactions: No Hx Malignant Hyperthermia: No - Suicidal Assessment Feels Threatened In Home Enviroment: No Family/Social History - Physician Review Nursing Documentation Reviewed: Yes Family/Social History: No Known Family HX Smoking Status: Former Smoker Hx Alcohol Use: No Hx Substance Use: No Hx Substance Use Treatment: No Allergies/Home Meds Allergies/Adverse Reactions: Allergies No Known Allergies Allergy (Verified 04/27/17 13:44) Home Medications: Home Meds Medication Instructions Recorded Confirmed Aspirin [Aspir 81] 81 mg PO DAILY 01/25/12 06/05/17 Clopidogrel [Plavix] 75 mg PO DAILY 04/17/14 06/05/17 Calcitriol [Rocaltrol] 0.5 mcg PO DAILY 07/18/15 06/05/17 Carbidopa/Levodopa [Sinemet Cr 1 ter PO TID 07/18/15 06/05/17 25-100 Tablet] Simvastatin [Zocor] 20 mg PO DAILY 07/18/15 06/05/17 Tamsulosin [Flomax] 0.4 mg PO DAILY 07/18/15 06/05/17 traMADol [Ultram] 50 mg PO DAILY 07/18/15 06/05/17 Review of Systems - Physician Review All systems were reviewed & negative as marked: Yes - Review of Systems Constitutional: Fevers. absent: Other (patient denies of any pain) Respiratory: Cough Physical Exam Vital Signs Reviewed: Yes Vital Signs Temp Pulse Resp BP Pulse Ox 06/05/17 17:51 87 18 141/75 97 06/05/17 16:07 98.4 F 79 18 145/84 97 Temperature: Afebrile Blood Pressure: Normal Pulse: Regular Respiratory Rate: Normal Appearance: Positive for: Well-Appearing Pain Distress: None Mental Status: Positive for: Alert and Oriented X 3 - Systems Exam Head: Present: Atraumatic, Normocephalic Pupils: Present: PERRL Extroacular Muscles: Present: EOMI Conjunctiva: Present: Normal Mouth: Present: Moist Mucous Membranes Neck: Present: Normal Range of Motion Respiratory/Chest: Present: Clear to Auscultation, Good Air Exchange. No: Respiratory Distress, Accessory Muscle Use Cardiovascular: Present: Regular Rate and Rhythm, Normal S1, S2. No: Murmurs Abdomen: Present: Normal Bowel Sounds. No: Tenderness, Distention, Peritoneal Signs Back: Present: Normal Inspection Upper Extremity: Present: Normal Inspection. No: Cyanosis, Edema Lower Extremity: Present: Normal Inspection. No: Edema Neurological: Present: GCS=15, CN II-XII Intact, Speech Normal, Other (tremor) Skin: Present: Warm, Dry, Normal Color. No: Rashes Psychiatric: Present: Alert, Oriented x 3, Normal Insight, Normal Concentration Medical Decision Making ED Course and Treatment: 06/05/17 16:21 Impression: 86 year old male with chronic weakness. Plan: -- EKG -- Chest X-ray -- Labs -- Urinalysis -- Urine Culture -- [place] Catheter Insertion -- Reassess and disposition Progress Notes: EKG: Ordered, reviewed, and independently interpreted the EKG. Rate : 72 BPM Rhythm : Pacemaker Interpretation : Prolonged QT Comparison : No previous EKG for comparison. - Lab Interpretations Lab Results: 06/05/17 16:40 06/05/17 16:40 Lab Results 06/05/17 16:40: Sodium 152 H, Potassium 3.4 L, Chloride 111 H, Carbon Dioxide 27 , Anion Gap 17, BUN 47 H, Creatinine 1.0, Est GFR ( Amer) > 60, Est GFR ( Non-Af Amer) > 60, Random Glucose 115 H, Calcium 9.3, Total Bilirubin 1.2, AST 28, ALT 26, Alkaline Phosphatase 111, Lactate Dehydrogenase 588, Total Creatine Kinase 67, Troponin I 0.01 D, Total Protein 8.2, Albumin 4.0, Globulin 4.2, Albumin/Globulin Ratio 1.0 L 06/05/17 16:40: WBC 12.9 H D, RBC 4.47, Hgb 14.2 D, Hct 42.9, MCV 96.0, MCH 31.8, MCHC 33.1, RDW 12.9, Plt Count 149, MPV 12.2 H, Gran % 83.6 H, Lymph % ( Auto) 6.7 L, [place] % (Auto) 9.5 H, Eos % (Auto) 0.0 L, Baso % (Auto) 0.2, Gran # 10.82 H, Lymph # 0.9 L, [place] # 1.2 H, Eos # 0.0, Baso # 0.02 - RAD Interpretation Radiology Orders: 06/05/17 16:21 CHEST PORTABLE [RAD] Stat - Medication Orders Current Medication Orders: Sodium Chloride (Sodium Chloride 0.9%) 1,000 mls @ 80 mls/hr IV .[id number] JADON - Scribe Statement The provider has reviewed the documentation as recorded by the Toshia Edwards Provider Scribe Attestation: All medical record entries made by the Toshia were at my direction and personally dictated by me. I have reviewed the chart and agree that the record accurately reflects my personal performance of the history, physical exam, medical decision making, and the department course for this patient. I have also personally directed, reviewed, and agree with the discharge instructions and disposition. Disposition/Present on Arrival - Present on Arrival Any Indicators Present on Arrival: No History of DVT/PE: No History of Uncontrolled Diabetes: No Urinary Catheter: No History of Decub. Ulcer: No History Surgical Site Infection Following: None - Disposition Have Diagnosis and Disposition been Completed?: Yes Diagnosis: Weakness, Dehydration, Hypernatremia Disposition Time: 17:35 Condition: FAIR
[2017-06-05 17:29] LABS: TROPONIN I 0.01 ng/mL
[2017-06-05] MEDS ORDERED: Sodium Chloride 0.9% 1,000 ML IV SCH (18:15)
[2017-06-05] MEDS: Dextrose 5%/0.45% NS 1,000 ML IV SCH (19:20)
[2017-06-05] MEDS ORDERED: Potassium Chloride 20 mEq ER Tab PO STA (19:47)
[2017-06-05] MEDS: Albuterol-Ipratrop 3 mg / 0.5 (3 ml) UD IH SCH (20:14)
[2017-06-05] MEDS: Promethazine 6.25 MG/5 ML CUP PO PRN (21:16)
[2017-06-06] MEDS: Albuterol-Ipratrop 3 mg / 0.5 (3 ml) UD IH SCH ×4 (03:00→21:30)
--- NOTE | 2017-06-06 03:33 | HP ---
HISTORY OF PRESENT ILLNESS: The patient is seen in the emergency room. He was brought in by the ambulance. The patient was found in his home, the ambulance had to open the door forcibly because he was sitting in the chair and unable to get out for many many hours. The patient was incontinent and lethargic. The patient's evaluation in the emergency room shows that the patient had severe hypernatremia. The patient has past history of hypertension, coronary artery disease. The patient has a pacemaker. The patient has a history of cerebrovascular disease, cerebral hemorrhage, Parkinson's disease, vitamin D deficiency, prostatic hyperplasia, BPH, Parkinson's condition. The patient has history of degenerative arthritis and history of cellulitis of the leg. The patient is evaluated. The patient is conscious, rational, oriented. He is able to talk and answers all questions. He told me the story what happened to him, but the patient has difficulty in his personal management, I suppose he was stuck in the chair and he could not get out, but he also has cough and he has evidence of incontinence of urine, and we will evaluate these additional findings. PHYSICAL EXAMINATION: VITAL SIGNS: His pulse is 87, blood pressure 140/75, respirations are 18, O2 saturation is 97% on room air, his temperature is 98.4. HEENT: His head is normocephalic. NECK: The thyroid is not enlarged. JVP is flat. Carotid pulses are present. LUNGS: Trachea is central. Occasional rhonchi and crepitations are heard bilaterally. No localizing signs. HEART: NSR. S1 and S2 present. The patient has a cardiac pacemaker. ABDOMEN: Distended. There is evidence of some clinical . Clinically, the patient also has evidence of urinary incontinence . EXTREMITIES: The patient's extremities seem to be dry and emaciated, thin without any excess fluid. The patient's x-ray of the chest did not reveal any findings. LABORATORY DATA: The white count was 12,900, his differential showed 83% polymorphonuclear leukocytes with a shift to the left. This is consistent with an infection. The patient has a cough, we will treat the patient's bronchitis associated with respiratory infection. The patient's chemistry, the patient's sodium was 152 which shows marked elevation of sodium consistent with dehydration, his BUN is 47, his creatinine 1.0, GFR is greater than 60, blood sugar 115. The patient will be put on IV fluids and antibiotic. The patient will be evaluated for further physical therapy and rehabilitation because the patient has phenomenon of freezing and in spite of the fact that the patient has Parkinson's disease. His neurological condition has to be reevaluated and medication has to be reevaluated. MEDICATIONS: His medicines consist of aspirin 81 mg daily, Flomax 0.4 mg daily, Lipitor 10 mg daily,Plavix 75 mg daily, vitamin D 0.25 mcg daily, Sinemet one tablet three times a day . The patient is on tramadol for pain p.r.n. IMPRESSION AND PLAN: The patient's diet is 2 gm sodium, heart healthy diet. His condition is unstable at this time. His overall prognosis is guarded, needs continued management in the acute medical care and request extended care for physical therapy and rehabilitation. Cong Myers MD
[2017-06-06] MEDS: Promethazine 6.25 MG/5 ML CUP PO PRN (04:42)
[2017-06-06 07:07] LABS: BASO # 0.01 K/mm3 (0.0-2.0); BASO % 0.1 % (0.0-3.0); EOS % 0.2 % (1.5-5.0); GRAN # 7.46 (1.4-6.5); GRAN % 76.6 % (50.0-68.0); HEMOGLOBIN 11.4 g/dL (14.0-18.0); LYMPH # 1.2 (1.2-3.4); LYMPH % 12.6 % (22.0-35.0); MEAN CELL VOLUME 96.2 fl (80.0-105.0); MEAN CORPUSCULAR HEMOGLOBIN 30.7 pg (25.0-35.0); MEAN CORPUSCULAR HGB CONC 31.9 g/dl (31.0-37.0); MEAN PLATELET VOLUME 11.7 fl (7.0-11.0); MONO % 10.5 % (1.0-6.0); RBC 3.71 10^6/uL (3.5-6.1); RED CELL DISTRIBUTION WIDTH 12.9 % (11.5-14.5); WHITE BLOOD COUNT 9.7 10^3/ul (4.5-11.0)
[2017-06-06 07:36] LABS: ALB/GLOB RATIO 0.9 (1.1-1.8); ALBUMIN 3.1 g/dL (3.0-4.8); ALT/SGPT 22 U/L (7-56); AST/SGOT 21 U/L (17-59); BLOOD UREA NITROGEN 36 mg/dL (7-21); GFR AFRICAN-AMERICAN > 60; GFR NON-AFRICAN AMERICAN > 60
[2017-06-06 07:42] LABS: CALCIUM 8.3 mg/dL (8.4-10.5)
--- NOTE | 2017-06-06 08:26 | CP.PCM.PN ---
Subjective - Date & Time of Evaluation Date of Evaluation: 06/06/17 Time of Evaluation: 08:00 - Subjective Subjective: Patient is seen this morning. He was admitted last night with inability to get up from a seated position. Blood work showed dehydration with hypernatremia. Patient is feeling better this morning. Objective - Vital Signs/Intake and Output Vital Signs (last 24 hours): Temp Pulse Resp BP Pulse Ox 98.4 F 78 18 158/68 H 97 06/05/17 16:07 06/06/17 06:00 06/06/17 00:41 06/06/17 00:41 06/05/17 21:18 Intake and Output: 06/06/17 06/06/17 06:59 18:59 Intake Total 240 Output Total 3 Balance 237 - Medications Medications: Current Medications Albuterol/Ipratropium (Duoneb 3 Mg/0.5 Mg (3 Ml) Ud) 3 ml IH [id number] [facility] Last Admin: 06/06/17 03:00 Dose: 3 ml Aspirin (Ecotrin) 81 mg PO DAILY [facility] Atorvastatin Calcium (Lipitor) 10 mg PO DIN [facility] Calcitriol (Rocaltrol) 0.25 mcg PO DAILY [facility] Carbidopa/Levodopa (Sinemet Cr) 1 tab PO TID [facility] Clopidogrel Bisulfate (Plavix) 75 mg PO DAILY [facility] Dextrose/Sodium Chloride (Dextrose 5%/0.45% Ns 1000 Ml) 1,000 mls @ 60 mls/hr IV .[id number] [facility] Last Admin: 06/05/17 19:20 Dose: 60 mls/hr Levofloxacin (Levaquin) 500 mg PO DAILY [facility] PRN Reason: Protocol Potassium Chloride (K-Dur 20 Meq Er Tab) 20 meq PO BRK [facility] Promethazine HCl (Phenergan Syrup) 5 mg PO Q4H PRN PRN Reason: Cough Last Admin: 06/06/17 04:42 Dose: 5 mg Tamsulosin HCl (Flomax) 0.4 mg PO DAILY [facility] Tramadol HCl (Ultram) 50 mg PO DAILY PRN PRN Reason: Pain, moderate (4-7) - Labs Labs: 06/06/17 06:00 06/06/17 06:00 - Constitutional Appears: No Acute Distress - Head Exam Head Exam: ATRAUMATIC, NORMOCEPHALIC - Respiratory Exam Respiratory Exam: Clear to Ausculation Bilateral, NORMAL BREATHING PATTERN - Cardiovascular Exam Cardiovascular Exam: +S1, +S2 - GI/Abdominal Exam GI & Abdominal Exam: Soft, Normal Bowel Sounds. absent: Tenderness - Neurological Exam Neurological Exam: Alert, Awake, Oriented x3 Assessment and Plan - Assessment and Plan (Free Text) Assessment: Dehydration/Hypernatremia Hypokalemia Inability to get up Acute Bronchitis Parkinson's disease Cerebrovascular disease Pacemaker History of CVA BPH Pacemaker Plan: Patient is seen this morning. His sodium level has decreased from 152 to 148. continue IV fluids. BUN trending down. Will replace potassium. check chemistry in AM. Patient will have physical therapy evaluation as he is unable to get up and walk. continue Levaquin, respiratory treatments, and phenergan cough syrup
--- NOTE | 2017-06-06 09:25 | RAD ---
HISTORY: weakness COMPARISON: 04/27/2017 FINDINGS: LUNGS: There is a small linear area of density in the retrocardiac region all. Small infiltrate is not excluded. No other infiltrates are seen. No CHF. Mild chronic interstitial changes a possible few small scattered calcified granuloma. Minor atelectasis at the right lung base is also suspected. PLEURA: No significant pleural effusion identified, no pneumothorax apparent. CARDIOVASCULAR: No change no CHF. OSSEOUS STRUCTURES: No significant abnormalities. VISUALIZED UPPER ABDOMEN: Normal. OTHER FINDINGS: Left pacemaker is unchanged. IMPRESSION: Small linear area of density in the left retrocardiac region. This may reflect some mild subsegmental atelectasis or crowding. Small infiltrate is not excluded. Minor atelectasis at the right lung base. Exam was placed into the PA review folder because no preliminary reading was provided by the emergency room physician.
--- NOTE | 2017-06-06 10:45 | CARD ---
APPROVED REPORT EKG Measurement Heart [id number] VT [id number] <Conclusion> RSR with V. Pacing. Artifact present
[2017-06-06] MEDS: Carbidopa/Levodopa 25/100 CR PO SCH ×3 (11:17→17:42)
[2017-06-06] MEDS: Potassium Chloride 20 mEq ER Tab PO SCH (11:20)
[2017-06-06 17:37] LABS: FOLATE > 20.0 ng/mL
[2017-06-07] MEDS: Albuterol-Ipratrop 3 mg / 0.5 (3 ml) UD IH SCH ×4 (02:25→20:41)
[2017-06-07] MEDS: Promethazine 6.25 MG/5 ML CUP PO PRN ×4 (06:05→21:39)
--- NOTE | 2017-06-07 08:12 | CP.PCM.PN ---
Subjective - Date & Time of Evaluation Date of Evaluation: 06/07/17 Time of Evaluation: 07:30 - Subjective Subjective: Patient is seen this morning. He is doing better. still with cough. Objective - Vital Signs/Intake and Output Vital Signs (last 24 hours): Temp Pulse Resp BP Pulse Ox 97.6 F 78 18 137/96 H 93 L 06/06/17 16:30 06/07/17 06:00 06/06/17 16:30 06/06/17 16:30 06/06/17 16:30 Intake and Output: 06/07/17 06/07/17 06:59 18:59 Intake Total 420 Balance 420 - Medications Medications: Current Medications Albuterol/Ipratropium (Duoneb 3 Mg/0.5 Mg (3 Ml) Ud) 3 ml IH [id number] [facility] Last Admin: 06/07/17 07:47 Dose: 3 ml Aspirin (Ecotrin) 81 mg PO DAILY [facility] Last Admin: 06/06/17 11:16 Dose: 81 mg Atorvastatin Calcium (Lipitor) 10 mg PO DIN [facility] Last Admin: 06/06/17 17:42 Dose: 10 mg Carbidopa/Levodopa (Sinemet Cr) 1 tab PO TID [facility] Last Admin: 06/06/17 17:42 Dose: 1 tab Cholecalciferol (Vitamin D) 2,000 intlu PO DAILY [facility] Clopidogrel Bisulfate (Plavix) 75 mg PO DAILY [facility] Last Admin: 06/06/17 11:17 Dose: 75 mg Dextrose/Sodium Chloride (Dextrose 5%/0.45% Ns 1000 Ml) 1,000 mls @ 60 mls/hr IV .[id number] [facility] Last Admin: 06/05/17 19:20 Dose: 60 mls/hr Levofloxacin (Levaquin) 500 mg PO DAILY [facility] PRN Reason: Protocol Last Admin: 06/06/17 11:17 Dose: 500 mg Potassium Chloride (K-Dur 20 Meq Er Tab) 20 meq PO BRK [facility] Last Admin: 06/06/17 11:20 Dose: 20 meq Promethazine HCl (Phenergan Syrup) 5 mg PO Q4H PRN PRN Reason: Cough Last Admin: 06/07/17 06:05 Dose: 5 mg Tamsulosin HCl (Flomax) 0.4 mg PO DAILY [facility] Last Admin: 01/20/18 11:17 Dose: 0.4 mg Tramadol HCl (Ultram) 50 mg PO DAILY PRN PRN Reason: Pain, moderate (4-7) - Labs Labs: 06/06/17 06:00 06/06/17 06:00 - Constitutional Appears: No Acute Distress - Head Exam Head Exam: ATRAUMATIC, NORMOCEPHALIC - Respiratory Exam Respiratory Exam: Decreased Breath Sounds, NORMAL BREATHING PATTERN - Cardiovascular Exam Cardiovascular Exam: +S1, +S2 - GI/Abdominal Exam GI & Abdominal Exam: Soft, Normal Bowel Sounds. absent: Tenderness - Extremities Exam Extremities Exam: Normal Inspection - Neurological Exam Neurological Exam: Alert, Awake, Oriented x3 Assessment and Plan - Assessment and Plan (Free Text) Assessment: Hypernatremia/dehydration hypokalemia Inability to get up and walk Acute bronchitis Cerebrovascular disease History of CVA Parkinson's disease Pacemaker BPH Plan: Patient is doing better. Awaiting today's chemistry. Sodium level was improved yesterday with IV fluids. Patient says that he was unable to get out of the chair on his own at home. He lives by himself. Fire department had to open his door and he was brought to the ER by ambulance. awaiting physical therapy evaluation. continue Levaquin, respiratory treatments and cough medicine
[2017-06-07 08:42] LABS: BASO # 0.01 K/mm3 (0.0-2.0); BASO % 0.1 % (0.0-3.0); EOS % 0.3 % (1.5-5.0); GRAN # 7.59 (1.4-6.5); HEMOGLOBIN 10.8 g/dL (14.0-18.0); LYMPH # 1.2 (1.2-3.4); LYMPH % 11.8 % (22.0-35.0); MEAN CELL VOLUME 95.5 fl (80.0-105.0); MEAN CORPUSCULAR HEMOGLOBIN 30.5 pg (25.0-35.0); MONO # 1.2 (0.1-0.6); MONO % 11.8 % (1.0-6.0); RBC 3.54 10^6/uL (3.5-6.1); RED CELL DISTRIBUTION WIDTH 12.7 % (11.5-14.5)
[2017-06-07] MEDS: Potassium Chloride 20 mEq ER Tab PO SCH (09:14)
[2017-06-07] MEDS: Carbidopa/Levodopa 25/100 CR PO SCH ×3 (09:15→18:02)
[2017-06-07] MEDS: Cholecalciferol 1,000 INTLU TAB PO SCH (09:15)
[2017-06-07 09:16] LABS: BLOOD UREA NITROGEN 20 mg/dL (7-21); CALCIUM 8.1 mg/dL (8.4-10.5); GFR AFRICAN-AMERICAN > 60; GFR NON-AFRICAN AMERICAN > 60
[2017-06-07] MEDS: Budesonide 0.5 mg/2 ml Inhal Susp UD IH SCH (20:41)
[2017-06-07] MEDS: Dextrose 5%/0.45% NS 1,000 ML IV SCH ×2 (21:39)
[2017-06-08] MEDS: Promethazine 6.25 MG/5 ML CUP PO PRN ×3 (01:33→21:16)
[2017-06-08] MEDS: Albuterol-Ipratrop 3 mg / 0.5 (3 ml) UD IH SCH ×4 (02:40→19:45)
[2017-06-08] MEDS: Budesonide 0.5 mg/2 ml Inhal Susp UD IH SCH ×2 (07:49→19:45)
[2017-06-08] MEDS: Potassium Chloride 20 mEq ER Tab PO SCH (08:43)
[2017-06-08] MEDS: Carbidopa/Levodopa 25/100 CR PO SCH ×3 (09:50→17:34)
[2017-06-08] MEDS: Cholecalciferol 1,000 INTLU TAB PO SCH (09:50)
--- NOTE | 2017-06-08 10:45 | PN ---
DATE: SUBJECTIVE: The patient is in room 370 at [facility] in [place]. The patient was admitted with a history that the patient was in a wheelchair, unable to get up and was not cared for more than one day. The patient was in urine and lethargic. The patient has a history of Parkinson's, cerebrovascular disease, and hypertension. The patient has a cardiac pacemaker. 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 PHYSICAL EXAMINATION: VITAL SIGNS: Pulse is 64, blood pressure is 120/60, respirations are 19, and O2 saturations are 97% on 2 L of oxygen. LUNGS: Crepitations scattered. No localizing signs. HEART: Normal sinus rhythm. The patient has a pacemaker. ABDOMEN: Soft and distended. CENTRAL NERVOUS SYSTEM: The patient has evidence of weakness of the right side from previous stroke. MEDICATIONS: The patient's medications consist of albuterol, DuoNeb treatment with Pulmicort. The patient is on aspirin, Flomax, Levaquin, and Lipitor. LABORATORY DATA: The patient's sodium level was elevated at the time of admission due to dehydration. Current blood work: Hemoglobin is 10.8. The patient's white count is 10,000. Chemistry: The patient's sodium is 141, normal range. The patient's vitamin D level is low. The iron is also low. The patient will be placed on medication supplement of the iron. His overall prognosis is guarded. Condition is improving. He will need physical therapy and rehabilitation prior to discharge, because the patient had difficulty unable to walk and he was frozen in the chair, when the ambulance service sent and found him, they had to open the door by possible means. Cong Myers MD
[2017-06-08] MEDS: Dextrose 5%/0.45% NS 1,000 ML IV SCH (14:58)
[2017-06-08] MEDS: Miconazole 2% Cream(30 gm) TOP SCH (17:34)
[2017-06-08 17:35] LABS: URINE BILIRUBIN NEGATIVE (NEGATIVE); URINE BLOOD TRACE-INTACT (NEGATIVE); URINE GLUCOSE (UA) NEGATIVE (NEGATIVE); URINE LEUKOCYTE ESTERASE TRACE Leu/uL (NEGATIVE); URINE NITRATE NEGATIVE (NEGATIVE); URINE PROTEIN NEGATIVE mg/dL (<30 mg/dL); URINE UROBILINOGEN 0.2 E.U./dL (<1 E.U./dL)
[2017-06-08 17:41] LABS: URINE APPEARANCE CLEAR (CLEAR); URINE COLOR LIGHT YELLOW (YELLOW)
[2017-06-08 18:44] LABS: URINE BACTERIA MOD (NEG); URINE WBC 0 - 2 /hpf (0-6)
[2017-06-09] MEDS: Albuterol-Ipratrop 3 mg / 0.5 (3 ml) UD IH SCH ×3 (01:46→13:33)
[2017-06-09] MEDS: Budesonide 0.5 mg/2 ml Inhal Susp UD IH SCH (07:57)
--- NOTE | 2017-06-09 08:09 | CP.PCM.PN ---
Subjective - Date & Time of Evaluation Date of Evaluation: 06/09/17 Time of Evaluation: 07:45 - Subjective Subjective: Patient is seen this morning. He says that cough is a little bit better. Objective - Vital Signs/Intake and Output Vital Signs (last 24 hours): Temp Pulse Resp BP Pulse Ox 99.4 F 69 18 199/51 H 94 L 06/08/17 16:09 06/09/17 06:00 06/08/17 16:09 06/08/17 16:09 06/08/17 16:09 Intake and Output: 06/09/17 06/09/17 06:59 18:59 Intake Total 380 0 Balance 380 0 - Medications Medications: Current Medications Albuterol/Ipratropium (Duoneb 3 Mg/0.5 Mg (3 Ml) Ud) 3 ml IH [id number] [facility] Last Admin: 06/09/17 07:57 Dose: 3 ml Aspirin (Ecotrin) 81 mg PO DAILY [facility] Last Admin: 06/08/17 09:50 Dose: 81 mg Atorvastatin Calcium (Lipitor) 10 mg PO DIN [facility] Last Admin: 06/08/17 17:33 Dose: 10 mg Budesonide (Pulmicort Respules) 0.5 mg IH [id number] [facility] Last Admin: 06/09/17 07:57 Dose: 0.5 mg Carbidopa/Levodopa (Sinemet Cr) 1 tab PO TID [facility] Last Admin: 06/08/17 17:34 Dose: 1 tab Cholecalciferol (Vitamin D) 2,000 intlu PO DAILY [facility] Last Admin: 06/08/17 09:50 Dose: 2,000 intlu Clopidogrel Bisulfate (Plavix) 75 mg PO DAILY [facility] Last Admin: 06/08/17 09:50 Dose: 75 mg Dextrose/Sodium Chloride (Dextrose 5%/0.45% Ns 1000 Ml) 1,000 mls @ 60 mls/hr IV .[id number] [facility] Last Admin: 06/08/17 14:58 Dose: 60 mls/hr Levofloxacin (Levaquin) 500 mg PO DAILY [facility] PRN Reason: Protocol Last Admin: 06/08/17 09:50 Dose: 500 mg Miconazole Nitrate (Miconazole 2% Cream) 0 ea TOP BID [facility] Last Admin: 06/08/17 17:34 Dose: 1 applic Potassium Chloride (K-Dur 20 Meq Er Tab) 20 meq PO BRK [facility] Last Admin: 06/08/17 08:43 Dose: 20 meq Promethazine HCl (Phenergan Syrup) 5 mg PO Q4H PRN PRN Reason: Cough Last Admin: 06/08/17 21:16 Dose: 5 mg Tamsulosin HCl (Flomax) 0.4 mg PO DAILY [facility] Last Admin: 06/08/17 09:50 Dose: 0.4 mg Tramadol HCl (Ultram) 50 mg PO DAILY PRN PRN Reason: Pain, moderate (4-7) - Labs Labs: 06/07/17 08:00 06/07/17 08:00 - Constitutional Appears: No Acute Distress - Head Exam Head Exam: ATRAUMATIC, NORMOCEPHALIC - Respiratory Exam Respiratory Exam: Clear to Ausculation Bilateral, NORMAL BREATHING PATTERN - Cardiovascular Exam Cardiovascular Exam: +S1, +S2 - GI/Abdominal Exam GI & Abdominal Exam: Soft, Normal Bowel Sounds. absent: Tenderness - Neurological Exam Neurological Exam: Alert, Awake, Oriented x3 Assessment and Plan - Assessment and Plan (Free Text) Assessment: Dehydration/hypernatremia Acute Bronchitis Fungal skin infection - perianal area BPH Parkinson's disease CVD history of CVA Plan: Patient's sodium level has normalized. We will check another chemistry in AM. continue Mycolog cream for fungal infection of skin continue Levaquin and respiratory treatments for bronchitis Patient awaiting placement in [facility].
[2017-06-09 08:57] VITALS: RESP 20
[2017-06-09] MEDS: Potassium Chloride 20 mEq ER Tab PO SCH (09:03)
[2017-06-09] MEDS: Miconazole 2% Cream(30 gm) TOP SCH ×2 (10:04→18:01)
[2017-06-09] MEDS: Carbidopa/Levodopa 25/100 CR PO SCH ×2 (10:04→15:02)
[2017-06-09] MEDS: Dextrose 5%/0.45% NS 1,000 ML IV SCH (10:04)
[2017-06-09] MEDS: Cholecalciferol 1,000 INTLU TAB PO SCH (10:04)
[2017-06-09 19:18] VITALS: BP 115/55; PULSE 61; TEMP 99; O2SAT 95
== END 2017-06-09 19:19 | DRG 641 ==
LOC: ED 15:50 → ERH 18:04 → 3RSO 21:23
PROVIDERS: ADMIT Internal Medicine; ATTEND Internal Medicine
DX: E87.0 Hyperosmolality and hypernatremia (principal); E86.0 Dehydration; G20 Parkinson's disease; I25.10 Atherosclerotic heart disease of native coronary artery without angina pectoris; E55.9 Vitamin D deficiency, unspecified; B35.6 Tinea cruris; I10 Essential (primary) hypertension; N40.0 Benign prostatic hyperplasia without lower urinary tract symptoms; I67.9 Cerebrovascular disease, unspecified; R32 Unspecified urinary incontinence; E87.6 Hypokalemia; J20.9 Acute bronchitis, unspecified; Z86.73 Personal history of transient ischemic attack (TIA), and cerebral infarction without residual deficits; Z79.02 Long term (current) use of antithrombotics/antiplatelets; Z79.82 Long term (current) use of aspirin; Z79.899 Other long term (current) drug therapy; Z95.0 Presence of cardiac pacemaker